=== PATIENT | female | born 1945 | race Caucasian/White ===

== ENCOUNTER 2017-02-14 14:19 | Inpatient (IN) | payer OTHER ==
--- NOTE | ~2017-02-14 | DS ---
Discharge Summary [facility] [address] [place]. [address] NAME: ОЛЬГА CAMPOS : 47 STATUS : DIS IN PAT#: [id number] AGE: 71 ADM/REG DATE : 02/14/17 MR#: [id number] REPORT SERV DATE: 02/16/17 DICTATED BY: LUCY CULP DATE: 02/15/17 REPORT STATUS : Draft TRANSCRIBED BY: MODL DATE: 02/15/17 ADMISSION DATE: 02/14/2017 DISCHARGE DATE: 02/15/2017 DISCHARGE DIAGNOSES: 1. Tachycardia, resolved. 2. Dehydration. 3. Acute kidney injury on chronic kidney disease. 4. Dysphagia, a modified barium swallow test showed no overt aspiration, but they recommended changing the diet to mechanical soft diet and explained to the patient. 5. Moderate protein-calorie malnutrition, proalbumin level of 10.6. HISTORY OF PRESENT ILLNESS: This is a 71-year-old female patient, who was directly admitted to hospital with sinus tachycardia, was noted by home health nurse. Please see dictated H and P. HOSPITAL COURSE: She was admitted to the hospital with sinus tachycardia. She was put on Coreg initially on admission and had a workup for the venous thrombosis. Her V/Q scan was low probability and also the ultrasounds of both legs were negative for DVT. The patient's sinus tachycardia subsided very quickly after the gentle hydration. Due to the ongoing dysphagia, the patient had tested for modified barium swallow test which showed no overt aspiration in that she has dysphagia and recommended modifying the diet to a mechanical soft diet. Because of her recent illness and hospitalization the last time, her nutrition status has been notified to be low with pre-albumin level of 12.6. I explained to the patient to take extra nutrition supplement with Ensure or Boost protein shake and modifying her diet to a mechanical soft diet. She voiced understanding, and after venous thrombosis was ruled, the patient remained in sinus rhythm. With Coreg given one dose, her heart rate went down to 50s. Therefore, we are not recommending continuing the Coreg, especially in light of history of orthostatic hypotension. I put her on the very low dose of metoprolol of 12.5 mg twice a day and needs close monitoring with the primary care physician. DISCHARGE MEDICATIONS: Same as home medication. One prescription of the metoprolol 12.5 mg twice a day is given on discharge. EKL/MODL Lucy Culp M.D. / [id number] CC: Discharge Summary [address] [address] NAME: ОЛЬГА CAMPOS : 47 STATUS : DIS IN PAT#: [id number] AGE: 71 ADM/REG DATE : 02/14/17 MR#: [id number] REPORT SERV DATE: 02/16/17 DICTATED BY: LUCY CULP DATE: 02/15/17 REPORT STATUS : Draft TRANSCRIBED BY: YUSUF DATE: 02/15/17 Elsa Roque M.D.
--- NOTE | ~2017-02-14 | HP ---
History And Physical [id number] [place]. [address] NAME: ОЛЬГА CAMPOS : 47 STATUS : ADM IN PAT#: [id number] AGE: 71 ADM/REG DATE : 02/14/17 MR#: [id number] REPORT SERV DATE: 02/14/17 DICTATED BY: MARSHAL LOPEZ DATE: 02/14/17 REPORT STATUS : Draft TRANSCRIBED BY: YUSUF DATE: 02/14/17 DATE OF ADMISSION: 02/14/2017 CHIEF COMPLAINT: Tachycardia with positive D-dimer. HISTORY OF PRESENT ILLNESS: This is a 71 years old female with an extensive past medical history for which the patient was recently discharged from the hospital in 11/[address] Michael Jackson, for which during that particular hospital course, the patient presented with acute on chronic abdominal pain with a diagnosis of mesenteric ischemia, for which the patient underwent an abdominal aortogram with stent placement in the proximal inferior mesenteric artery and percutaneous angioplasty of the secondary branch of the inferior mesenteric artery on 11/25/[address] Krueger. Postop, the patient experienced a code blue for which was stated to be possibly secondary to vasovagal episode, and the patient was transferred to ICU, also seen by Cardiology with Dr. Morrison and Dr. Caballero with an echocardiogram with ejection fraction of 55% with some mild ventricular diastolic dysfunction and no significant valvular disease. The patient's ARB was discontinued during that time due to orthostasis and CKD, and per Cardiology, the patient was not an FARIDA or ARB candidate due to her findings. The patient was discharged to [facility] and according to the patient's , the patient did reasonably well at [facility]; however, since discharge, the patient has not been eating or drinking well. The patient occasionally has choking episodes. The patient states that she feels like food or liquid occasionally gets stuck in her throat and she is afraid to eat. She denies any abdominal pain. The patient was discharged from [facility] and being seen by Outpatient Physical Therapy and approximately five days ago, the patient was found to have tachycardia with a heart rate in the 120s and has maintained in the 120s. She was seen by her primary care physician, Dr. Georgina Lance, who reportedly found the patient to be in sinus tachycardia and had a positive D-dimer greater than 5, and the patient was referred for direct admission into the hospital. The direct admission was accepted by Dr. Elmira Rao. The patient denies any chest pain, denies any shortness of breath. According to her , the patient is not very active at home, occasionally uses a walker, but he has not witnessed any shortness of breath or dyspnea on exertion. The patient is a poor history center lead consultant since her code blue according to her . The patient has not had any subjective fever or chills per the patient or . No abdominal pain. No nausea or vomiting. Does have intermittent constipation and requires laxatives intermittently. No medical records from primary care office sent to hospital. REVIEW OF SYSTEMS: Please refer to HPI. PAST MEDICAL HISTORY: Mesenteric ischemia, hypertension, orthostasis, thoracic aortic aneurysm status post endovascular repair, hyperlipidemia, COPD, anemia, monoclonal gammopathy, obstructive sleep apnea, peripheral vascular disease, CKD with atrophic right kidney. PAST SURGICAL HISTORY: Mesenteric aortogram with stent placement in the proximal inferior mesenteric artery and angioplasty of inferior mesenteric artery branch, lap cholecystectomy, History And Physical [address] [address] NAME: ОЛЬГА CAMPOS : 47 STATUS : ADM IN [facility]#: [id number] AGE: 71 ADM/REG DATE : 02/14/17 MR#: [id number] REPORT SERV DATE: 02/14/17 DICTATED BY: MARSHAL LOPEZ DATE: 02/14/17 REPORT STATUS : Draft TRANSCRIBED BY: YUSUF DATE: 02/14/17 hysterectomy, tonsillectomy, thoracic aortic stent graft repair, femoral stents. FAMILY HISTORY: Coronary artery disease/AL. SOCIAL HISTORY: The patient quit tobacco abuse in 2011. No alcohol or illicit drugs. She uses an occasional walker. Lives at home with her spouse. ALLERGIES: FAMILY DENIES ANY KNOWN ALLERGIES; HOWEVER, ACCORDING TO CHART, THERE IS A POSSIBLE ALLERGY WITH THE HYDROCODONE CAUSING HIVES. HOME MEDICATIONS: Please refer to pharmacy MAR. PHYSICAL EXAMINATION: VITAL SIGNS: Temp of 97.9, blood pressure 187/93 with a pulse of 104, respiration of 16, saturating 99% on room air. GENERAL: The patient is alert and oriented. No distress. States she feels fine. HEENT: Pupils equal, round, and reactive to light. Extraocular muscles are intact. Anicteric sclerae. CARDIOVASCULAR: S1, S2. Tachycardic. Possible 1/6 systolic murmur. No appreciated JVD. RESPIRATORY: Clear to auscultation bilaterally. No wheezes or crackles. No signs of tachypnea. ABDOMEN: Positive bowel sounds. Soft, nontender. No rebound. No fluid wave. No distention. EXTREMITIES: Bilateral dorsalis pedis pulses with bilateral trace of edema, the left lower extremity greater than the right. NEURO: Cranial nerves 2 through 12 grossly intact. Moves all four extremities. No neuro focal deficits. SKIN: No appreciated new skin rashes. LABORATORY DATA: Labs currently pending. ASSESSMENT AND PLAN: 1. Tachycardia/arrhythmia. 2. Positive D-dimer. 3. Failure to thrive with poor oral intake. 4. Dysphagia. 5. History of chronic kidney disease. 6. Chronic obstructive pulmonary disease. The patient will be admitted to cardiac telemetry. We will order a stat EKG. Also, we will order a V/Q scan considering the patient's CKD with an atrophic kidney. I want to protect kidneys as much as possible. Also, we will order bilateral lower extremity venous Doppler to rule out DVT and empirically start on heparin drip until PE or DVTs are ruled out. Also, we will provide low dose of IV hydration and also we will consult Speech Path for modified barium swallow for the patient's dysphagia. Also, we will follow up with pending labs and order a TSH and chest x-ray. The patient to be closely monitored. The patient will be admitted to Dr. Horacio Figueroa. History And Physical [address] [address] NAME: ОЛЬГА CAMPOS : 47 STATUS : ADM IN [facility]#: [id number] AGE: 71 ADM/REG DATE : 02/14/17 MR#: [id number] REPORT SERV DATE: 02/14/17 DICTATED BY: MARSHAL LOPEZ DATE: 02/14/17 REPORT STATUS : Draft TRANSCRIBED BY: YUSUF DATE: 02/14/17 [facility]/YUSUF Marshal Lopez M.D. / [id number] CC: Horacio Figueroa Jr, MD Christine Parker, M.D.
[~2017-02-14 14:19] MED LIST: 8 HOUR650 MG PO; ADVAIR250 INH; AMB5 PO; ASAB PO; BLOOD PRESSURE MED; CELEXA10 PO; COMP10B PO; COREG12 PO; COREG25 PO; COREG6 PO; COZ50 PO; DIL2TAB PO; HCTZ25B PO; KLONO5 PO; LEVSINTAB PO; LIPITOR40 PO; LIPITOR80 MG PO; LOSARTAN; MENEST0.625 MG PO; NEUR300 PO; PCET PO; PLAVIX PO; PRAVACHOL40 MG PO; PREM625 PO; PRILO PO; PRILOSEC OTC20 MG PO; PRIN20 PO; PROAIR HFA INH; REG PO; SPIRIVA INH; T PO; TYLENOL 8 HR650 MG PO
[2017-02-14] MEDS ORDERED: DULERA 200 MCG/13 GM INH (16:30)
[2017-02-14] MEDS ORDERED: SENTAB PO (16:30)
[2017-02-14] MEDS ORDERED: ASAB PO (16:30)
[2017-02-14] MEDS ORDERED: NORV25 PO (16:31)
[2017-02-14 17:14] LABS: BASOPHILS 0.2 %; BASOPHILS ABSOLUTE 0.02 10/3/uL (0.0-0.16); EOSINOPHILS 0.7 %; EOSINOPHILS ABSOLUTE 0.08 10/3/uL (0.0-0.53); IMMATURE GRANULOCYTES 0.4 %; IMMATURE GRANULOCYTES ABSOLUTE 0.05 10/3/uL (0.0-0.11); LYMPHOCYTES 21.2 %; LYMPHOCYTES ABSOLUTE 2.56 10/3/uL (0.67-4.30); MEAN CORPUS HGB CONC 31.1 g/dL (32.0-36.0); MEAN CORPUSCULAR HEMOGLOB 23.4 pg (26.0-34.0); MEAN PLATELET VOLUME 8.5 fL (9.2-13.0); MONOCYTES 9.2 %; MONOCYTES ABSOLUTE 1.11 10/3/uL (0.21-1.20); NEUTROPHILS 68.3 %; NEUTROPHILS ABSOLUTE 8.24 10/3/uL (2.02-8.40); PLATELET COUNT 363 10/3/uL (150-400); RBC DISTRIBUTION WIDTH 17.7 % (12.0-16.0); RED CELL COUNT 4.66 10/6/uL (4.0-5.6); WHITE BLOOD CELLS 12.1 10/3/uL (4.5-10.5)
[2017-02-14 17:15] LABS: HEMATOCRIT 35.1 % (36.0-48.0); HEMOGLOBIN 10.9 g/dL (12.0-16.0); MANUAL DIFF NO %; MEAN CORPUSCULAR VOLUME 75.3 fL (80-100)
[2017-02-14 17:18] LABS: PARTIAL THROMBO TIME 26.9 SEC (22.5-37.2)
[2017-02-14 17:19] LABS: INTERNATIONAL NORMAL RATI 1.2 UNITS (-)
[2017-02-14 17:28] LABS: CPK 21 U/L (0-200); TROPONIN I <0.02 NG/ML (<0.05)
[2017-02-14 17:29] LABS: CK-MB < 0.5 NG/ML
[2017-02-15 06:09] LABS: BASOPHILS 0.5 %; BASOPHILS ABSOLUTE 0.05 10/3/uL (0.0-0.16); EOSINOPHILS 2.1 %; EOSINOPHILS ABSOLUTE 0.21 10/3/uL (0.0-0.53); HEMOGLOBIN 9.8 g/dL (12.0-16.0); IMMATURE GRANULOCYTES 0.3 %; IMMATURE GRANULOCYTES ABSOLUTE 0.03 10/3/uL (0.0-0.11); LYMPHOCYTES 28.1 %; LYMPHOCYTES ABSOLUTE 2.75 10/3/uL (0.67-4.30); MEAN CORPUS HGB CONC 31.3 g/dL (32.0-36.0); MEAN CORPUSCULAR HEMOGLOB 23.6 pg (26.0-34.0); MEAN CORPUSCULAR VOLUME 75.2 fL (80-100); MEAN PLATELET VOLUME 8.7 fL (9.2-13.0); MONOCYTES 8.9 %; MONOCYTES ABSOLUTE 0.87 10/3/uL (0.21-1.20); NEUTROPHILS 60.1 %; NEUTROPHILS ABSOLUTE 5.86 10/3/uL (2.02-8.40); PLATELET COUNT 350 10/3/uL (150-400); RBC DISTRIBUTION WIDTH 17.8 % (12.0-16.0); RED CELL COUNT 4.16 10/6/uL (4.0-5.6); WHITE BLOOD CELLS 9.8 10/3/uL (4.5-10.5)
[2017-02-15 06:14] LABS: INTERNATIONAL NORMAL RATI 1.3 UNITS (-); PROTIME (NOT ORD) 16.3 SEC (12.0-14.5)
[2017-02-15 06:15] LABS: HEMATOCRIT 31.3 % (36.0-48.0); MANUAL DIFF NO %
[2017-02-15 06:31] LABS: BUN (BLOOD UREA NITROGEN) 21 MG/DL (6-23); CALCIUM, SERUM 9.1 MG/DL (8.5-10.4); CHLORIDE, SERUM 91 MMOL/L (96-112); CO2 (CARBON DIOXIDE) 30 MMOL/L (24-34); CREATININE 1.18 MG/DL (0.55-1.02); GFR AFRICAN AMERICAN 54 ML/MIN (>=60); GFR NON AFRICAN AMERICAN 47 ML/MIN (>=60); GLUCOSE, SERUM 110 MG/DL (60-99); PHOSPHORUS, SERUM 2.8 MG/DL (2.5-4.5); POTASSIUM, SERUM 3.1 MMOL/L (3.5-5.3); PREALBUMIN 10.6 MG/DL (17.0-43.0); SGOT(AST) 9 U/L (5-40); SGPT(ALT) 9 U/L (5-65); SODIUM, SERUM 130 MMOL/L (135-148); TOTAL BILIRUBIN 0.4 MG/DL (0-1.2); TOTAL PROTEIN 7.7 G/DL (6.0-8.5)
[2017-02-15 06:33] LABS: A/G RATIO 0.5 (0.7-1.9); ALBUMIN 2.5 G/DL (3.5-5.0); ALKALINE PHOSPHATASE 90 U/L (45-117); GLOBULIN 5.2 G/DL (2.5-4.1)
[2017-02-15] MEDS ORDERED: LOP25 PO (15:26)
[2017-05-08] MEDS ORDERED: CELEXA20 PO (18:49)
[2017-05-08] MEDS ORDERED: HALF81 PO (18:49)
[2017-05-08] MEDS ORDERED: ADVAIR INH (18:49)
[2017-05-08] MEDS ORDERED: SPIRIVA INH (18:49)
[2017-05-08] MEDS ORDERED: SENTAB PO (18:50)
[2017-05-08] MEDS ORDERED: NORV25 PO (18:50)
[2017-05-08] MEDS ORDERED: CELEXA40 MG PO (18:50)
[2017-05-08] MEDS ORDERED: PLAVIX PO (18:50)
[2017-05-08] MEDS ORDERED: AMB5 PO (18:51)
[2017-05-08] MEDS ORDERED: PROTONIX PO (18:51)
[2017-05-27] MEDS ORDERED: CELEXA40 MG PO (09:54)
== END 2017-02-15 17:49 | disposition home or self-care (01) | DRG 641 ==
LOC: CDU2 14:19
PROVIDERS: Internal Medicine
DX: E86.0 Dehydration (principal); N17.9 Acute kidney failure, unspecified; E44.0 Moderate protein-calorie malnutrition; J44.9 Chronic obstructive pulmonary disease, unspecified; N18.9 Chronic kidney disease, unspecified; I12.9 Hypertensive chronic kidney disease with stage 1 through stage 4 chronic kidney disease, or unspecified chronic kidney disease; I95.1 Orthostatic hypotension; R13.10 Dysphagia, unspecified; G47.33 Obstructive sleep apnea (adult) (pediatric); Z82.49 Family history of ischemic heart disease and other diseases of the circulatory system; Z95.828 Presence of other vascular implants and grafts
CPT/HCPCS: 36415; 71010; 74230; 78582; 80053; 82550; 82553; 83735; 84100; 84134; 84443; 84484; 85025; 85027; 85610; 85730; 86850; 86900; 86901; 92611-GN; 93005; 93970; 94640; A9270-GY; A9540; A9567; G8996-CJ-GN; G8997-CJ-GN; G8998-CJ-GN; J0360

== ENCOUNTER 2017-05-08 20:04 | Inpatient (IN) | payer MEDICARE, OTHER ==
--- NOTE | ~2017-05-08 | OP ---
Record Of Operation [facility] [address] [place]. 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 PROCEDURE: 1. Endovascular repair of type 1 endoleak with placement of distal aortic extension cuff for treatment of expanding thoracoabdominal aneurysm. 2. Placement of the left renal stent (snorkel technique for preservation of flow to the left renal artery). 3. Abdominal aortogram. 4. Bilateral femoral sheath. ANESTHESIA: Local with MAC. IV FLUIDS: 100 mL. ESTIMATED BLOOD LOSS: 25 mL. CONTRAST: 110 mL. BRIEF HISTORY: Ms. Adri Campos is a pleasant 72-year-old female who is a well-known to my service. She has had multiple interventions for treatment of mesenteric occlusive disease as well as endovascular repair of the distal thoracic aneurysm extending down to the abdominal aorta. She has now developed an expanding thoracoabdominal aneurysm with a type 1 endoleak below in existing graft. 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 The aneurysm extends down to near the base of the left renal artery. Based on her overall poor medical risk factors, she was felt not to be a good candidate for open thoracoabdominal reconstruction. She was recommended to undergo an attempt at endovascular repair with possible stenting of the left renal artery in order to maintain flow and avoid left renal artery bypass. This was all discussed with the patient well as well as with her at length on multiple occasions. The risks including bleeding, infection, renal failure, heart attack, pneumonia, limb loss, mesenteric ischemia among others were all discussed. They had no unanswered questions and wished to proceed. DESCRIPTION OF PROCEDURE: She was taken to the operating room and placed in supine on table. Sedation was achieved. Both groins and the abdomen were prepped and draped in the sterile fashion. I performed a puncture of the right common femoral artery, placed a 6-Rwandan sheath, and advanced a catheter into the thoracic aorta. We then performed a puncture on the left side, we placed a ProGlide device x2, and then placed an 11-Rwandan sheath. Record Of Operation [facility] [address] [facility] [place]. [address] NAME: ADRI CAMPOS : 47 STATUS : DIS IN PAT#: [id number] AGE: 72 ADM/REG DATE : 05/08/17 MR#: [id number] REPORT SERV DATE: 05/16/17 DICTATED BY: CASEY FRANCISCO II DATE: 05/15/17 REPORT STATUS : Draft TRANSCRIBED BY: YUSUF DATE: 05/15/17 Aortogram was performed that demonstrating a previously placed aortic stent graft that extended down from the thoracic aorta down into the abdominal aorta. There was absence of fixation to the aortic wall and the abdominal aorta and above the renal arteries with the aneurysm extends down to the left renal. Below the left renal, the aorta appears to be of normal caliber consistent with the CT scan. The SMA reimplantation was widely patent. The right renal artery was functionally occluded. At this point, we heparinized the patient, we came from the right side, and we passed a wire into the left renal artery. We then passed a sheath in the left renal artery when preparation to bring the stent down below the renal arteries and placing a stent to preserve flow within the left renal. We then elected to proceed with endovascular repair of the type 1 endoleak and to exclude the aneurysm. We advanced the main body of the device which was a 38 x 32 device into the existing graft and we deployed this down near the origin of the SMA reimplantation below the left renal artery. We then deployed 7 mm x 5 cm stent into the left renal artery. This was a covered stent that was deployed in a snorkel technique with the origin of the stent exiting below the distal attachment of the thoracic stent graft. We then ballooned the left renal stent as well as the aortic stent graft. Completion of aortogram demonstrates excellent placement of the stent. There was good flow through the thoracic stent. There was no further type 1 endoleak seen. Good fixation was seen distally. The left renal stent was widely patent with excellent flow noted to the left renal artery. The superior mesenteric artery remained widely patent. We then removed all the wires and catheters, and we closed percutaneously. At the end of procedure, Ms. Campos was stable. She tolerated it well. She was transported to the recovery room in good condition. BLAYNE/YUSUF Casey Francisco II, M.D. / [id number] CC: Elsa Adorno M.D.
--- NOTE | ~2017-05-08 | DS ---
Discharge Summary [facility] [address] [place]. [address] NAME: ОЛЬГА CAMPOS : 47 STATUS : DIS IN PAT#: [id number] AGE: 72 ADM/REG DATE : 05/08/17 MR#: [id number] REPORT SERV DATE: 05/30/17 DICTATED BY: BEATRIZ RAO DATE: 05/29/17 REPORT STATUS : Draft TRANSCRIBED BY: YUSUF DATE: 05/29/17 Data Collection from hospitalization DISCHARGE DIAGNOSES: 1. 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 2. Hypertension. 3. CML. 4. Hyperlipidemia. 5. Chronic obstructive pulmonary disease. 6. Monoclonal gammopathy. 7. Peripheral vascular disease. 8. Obstructive sleep apnea. 9. Chronic kidney disease with atrophic right kidney. 10.Former smoker. CONSULTATIONS: None. PROCEDURES: Endovascular repair of type 1 endoleak with placement of distal aortic extension cuff for treatment of expanding thoracoabdominal aneurysm, placement of left renal stent (snorkel technique for preservation of flow to the left renal artery), abdominal aortogram and bilateral femoral sheath, 05/11/2017. DISCHARGE MEDICATIONS: Norvasc 2.5 mg daily, aspirin 81 mg daily, Celexa 20 mg every 48 hours, Plavix 75 mg daily, Advair Diskus one puff via inhaler daily, Protonix 40 mg daily as needed, Senokot one tablet daily as needed, Spiriva one capsule via inhaler daily, and Ambien 5 mg at bedtime as needed. She was instructed not to continue Celexa 40 mg. CONDITION ON DISCHARGE: Stable. DISPOSITION: The patient was discharged home on a low-sodium, low-cholesterol cardiac step 1 and 2 diet with activities as instructed. She will follow up with me, 05/30/2017. HOSPITAL COURSE: This is a 72-year-old female who presented to the hospital with abdominal pain of four days' duration. It was located in the epigastric area. She also had lower back pain, nausea, and vomiting. She described the pain as soreness after receiving a pain shot. The pain had been worsening until now and was described as being 8 out of 10. There was a concern about possible endoleak. There was a concern about possible thoracoabdominal aortic aneurysm. Stent graft imaging was going to be reviewed. The patient was admitted to the hospital at this time for further evaluation and treatment. Upon admission, the patient was stable currently, blood pressure control was begun, she was being held n.p.o. pending imaging. She is going to be monitored in the ICU. The following day, her pain had resolved. Her systolic blood pressure was 150 on Cardene. No leak had been seen on CTA. Her pain symptoms had resolved. On 05/10/2017, her pain continued to decrease. She still had some tenderness in the epigastric area. Her CT scan had shown some increase in the TAA. There was no definite endoleak. The patient has an 8-cm aneurysm of the descending aorta. There was no evidence of fracture or signs of endoleak but comparison Discharge Summary [address] [place]. [address] NAME: ОЛЬГА CAMPOS : 47 STATUS : DIS IN PAT#: [id number] AGE: 72 ADM/REG DATE : 05/08/17 MR#: [id number] REPORT SERV DATE: 05/30/17 DICTATED BY: BEATRIZ RAO DATE: 05/29/17 REPORT STATUS : Draft TRANSCRIBED BY: MODGreg DATE: 05/29/17 studies would be most helpful in ensuring that there was no significant enlargement. The patient has chronic hypoperfusion of the right kidney due to mostly an occluded right renal artery. There is stenosis of the distal aortic artery branch just superior to the level of the aortic bifurcation. The stenosis was seen just beyond the stent graft, and there appeared to be [id number] stenosis. No obvious complications related to this artery were seen but comparison studies would be most helpful in assessing the clinical significance of this stenosis. The patient had undergone multiple interventions for treatment of mesenteric occlusive disease as well as endovascular repair of the distal thoracic aneurysm extending down to the abdominal aorta. It was felt that she had now developed an expanding thoracoabdominal aneurysm with type 1 endoleak below an existing graft. 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 The aneurysm extends down to near the base of the left renal artery. Based on her overall poor medical risk factors, she was not felt to be a good candidate for open thoracoabdominal reconstruction. It was recommended that she undergo an attempt at endovascular repair with possible stenting of the left renal artery in order to maintain flow and avoid left renal artery bypass. This was discussed with the patient and her at length on multiple occasions, they agreed to proceed. She was taken to the operating room where she underwent the above-mentioned procedure. She tolerated this well, and there were no complications. On postop day #1, the patient was doing well. She had no new complaints. She denied chest pain, shortness of breath, or abdominal pain. She was afebrile. She was going to be transferred to the floor. On the 05/13/2017, she felt well, her abdomen was soft and nontender, her groin site was clean, dry, and intact. She continued to slowly improve. Blood pressure was under better control. She was evaluated by Physical Therapy. Her pain continued to decrease. She was tolerating her diet. Discharge planning was performed on 05/15/2017. She remained afebrile. Discharge instructions were given. Due to her improved and stable condition, she was discharged home with the above- stated instructions. Information collected by: Maria Ines Berry I submit the above information as my discharge summary. TG/MODL Beatriz Rao M.D. / [id number] CC: Elsa Adorno M.D.
[2017-05-08 15:45] LABS: A/G RATIO 0.5 (0.7-1.9); ALBUMIN 3.1 G/DL (3.5-5.0); CALCIUM, SERUM 9.8 MG/DL (8.5-10.4); CHLORIDE, SERUM 93 MMOL/L (96-112); CO2 (CARBON DIOXIDE) 29 MMOL/L (24-34); CREATININE 1.39 MG/DL (0.55-1.02); GFR AFRICAN AMERICAN 44 ML/MIN (>=60); GFR NON AFRICAN AMERICAN 38 ML/MIN (>=60); GLOBULIN 5.7 G/DL (2.5-4.1); SGOT(AST) 13 U/L (5-40); SGPT(ALT) 13 U/L (5-65); SODIUM, SERUM 134 MMOL/L (135-148); TOTAL BILIRUBIN 0.4 MG/DL (0-1.2); TOTAL PROTEIN 8.8 G/DL (6.0-8.5)
[2017-05-08 15:52] LABS: ALKALINE PHOSPHATASE 116 U/L (45-117); BUN (BLOOD UREA NITROGEN) 29 MG/DL (6-23); GLUCOSE, SERUM 143 MG/DL (60-99); POTASSIUM, SERUM 3.1 MMOL/L (3.5-5.3)
[2017-05-08 19:47] LABS: BASOPHILS 0.2 %; BASOPHILS ABSOLUTE 0.02 10/3/uL (0.0-0.16); EOSINOPHILS 0.3 %; EOSINOPHILS ABSOLUTE 0.03 10/3/uL (0.0-0.53); ER CBC TAT 0 Hrs 07 Mins; HEMATOCRIT 32.8 % (36.0-48.0); HEMOGLOBIN 10.2 g/dL (12.0-16.0); IMMATURE GRANULOCYTES 0.3 %; IMMATURE GRANULOCYTES ABSOLUTE 0.04 10/3/uL (0.0-0.11); LYMPHOCYTES 22.8 %; LYMPHOCYTES ABSOLUTE 2.65 10/3/uL (0.67-4.30); MANUAL DIFF NO %; MEAN CORPUS HGB CONC 31.1 g/dL (32.0-36.0); MEAN CORPUSCULAR HEMOGLOB 23.7 pg (26.0-34.0); MEAN CORPUSCULAR VOLUME 76.1 fL (80-100); MONOCYTES 8.8 %; MONOCYTES ABSOLUTE 1.02 10/3/uL (0.21-1.20); NEUTROPHILS 67.6 %; NEUTROPHILS ABSOLUTE 7.88 10/3/uL (2.02-8.40); PLATELET COUNT 334 10/3/uL (150-400); RBC DISTRIBUTION WIDTH 17.2 % (12.0-16.0); RED CELL COUNT 4.31 10/6/uL (4.0-5.6); WHITE BLOOD CELLS 11.6 10/3/uL (4.5-10.5)
[2017-05-08 19:55] LABS: INTERNATIONAL NORMAL RATI 1.3 UNITS (-); PROTIME (NOT ORD) 15.8 SEC (12.0-14.5)
[2017-05-08 20:03] LABS: A/G RATIO 0.5 (0.7-1.9); ALBUMIN 2.8 G/DL (3.5-5.0); BUN (BLOOD UREA NITROGEN) 28 MG/DL (6-23); CALCIUM, SERUM 9.5 MG/DL (8.5-10.4); CHLORIDE, SERUM 94 MMOL/L (96-112); CO2 (CARBON DIOXIDE) 32 MMOL/L (24-34); CREATININE 1.26 MG/DL (0.55-1.02); GFR AFRICAN AMERICAN 50 ML/MIN (>=60); GFR NON AFRICAN AMERICAN 43 ML/MIN (>=60); GLOBULIN 5.8 G/DL (2.5-4.1); GLUCOSE, SERUM 119 MG/DL (60-99); POTASSIUM, SERUM 3.3 MMOL/L (3.5-5.3); SGPT(ALT) 12 U/L (5-65); SODIUM, SERUM 133 MMOL/L (135-148); TOTAL BILIRUBIN 0.4 MG/DL (0-1.2); TOTAL PROTEIN 8.6 G/DL (6.0-8.5)
[2017-05-08 20:04] LABS: ALKALINE PHOSPHATASE 102 U/L (45-117); SGOT(AST) 15 U/L (5-40)
[~2017-05-08 20:04] MED LIST changes: +ADVAIR INH; +CELEXA20 PO; +CELEXA40 MG PO; +DULERA 200 MCG/13 GM INH; +HALF81 PO; +LOP25 PO; +NORV25 PO; +PROTONIX PO; +SENTAB PO
[2017-05-09 04:08] LABS: BASOPHILS 0.3 %; BASOPHILS ABSOLUTE 0.03 10/3/uL (0.0-0.16); EOSINOPHILS 0.6 %; EOSINOPHILS ABSOLUTE 0.06 10/3/uL (0.0-0.53); HEMATOCRIT 33.4 % (36.0-48.0); HEMOGLOBIN 10.2 g/dL (12.0-16.0); IMMATURE GRANULOCYTES 0.3 %; IMMATURE GRANULOCYTES ABSOLUTE 0.03 10/3/uL (0.0-0.11); LYMPHOCYTES 18.5 %; LYMPHOCYTES ABSOLUTE 1.95 10/3/uL (0.67-4.30); MEAN CORPUS HGB CONC 30.5 g/dL (32.0-36.0); MEAN CORPUSCULAR HEMOGLOB 23.5 pg (26.0-34.0); MONOCYTES 8.8 %; MONOCYTES ABSOLUTE 0.93 10/3/uL (0.21-1.20); NEUTROPHILS 71.5 %; NEUTROPHILS ABSOLUTE 7.54 10/3/uL (2.02-8.40); PLATELET COUNT 304 10/3/uL (150-400); RBC DISTRIBUTION WIDTH 17.1 % (12.0-16.0); RED CELL COUNT 4.34 10/6/uL (4.0-5.6); WHITE BLOOD CELLS 10.5 10/3/uL (4.5-10.5)
[2017-05-09 04:09] LABS: MANUAL DIFF NO %
[2017-05-09 04:21] LABS: BUN (BLOOD UREA NITROGEN) 28 MG/DL (6-23); CALCIUM, SERUM 9.9 MG/DL (8.5-10.4); CHLORIDE, SERUM 97 MMOL/L (96-112); CO2 (CARBON DIOXIDE) 32 MMOL/L (24-34); CREATININE 1.24 MG/DL (0.55-1.02); GFR AFRICAN AMERICAN 51 ML/MIN (>=60); GFR NON AFRICAN AMERICAN 44 ML/MIN (>=60); GLUCOSE, SERUM 131 MG/DL (60-99); SODIUM, SERUM 136 MMOL/L (135-148)
[2017-05-10 04:48] LABS: BASOPHILS 0.3 %; BASOPHILS ABSOLUTE 0.03 10/3/uL (0.0-0.16); EOSINOPHILS 1.6 %; EOSINOPHILS ABSOLUTE 0.15 10/3/uL (0.0-0.53); HEMOGLOBIN 8.9 g/dL (12.0-16.0); IMMATURE GRANULOCYTES 0.4 %; IMMATURE GRANULOCYTES ABSOLUTE 0.04 10/3/uL (0.0-0.11); LYMPHOCYTES 23.5 %; MEAN CORPUS HGB CONC 30.4 g/dL (32.0-36.0); MEAN CORPUSCULAR HEMOGLOB 23.6 pg (26.0-34.0); MEAN CORPUSCULAR VOLUME 77.7 fL (80-100); MEAN PLATELET VOLUME 8.7 fL (9.2-13.0); MONOCYTES 8.5 %; NEUTROPHILS 65.7 %; NEUTROPHILS ABSOLUTE 6.15 10/3/uL (2.02-8.40); PLATELET COUNT 261 10/3/uL (150-400); RBC DISTRIBUTION WIDTH 17.1 % (12.0-16.0); RED CELL COUNT 3.77 10/6/uL (4.0-5.6); WHITE BLOOD CELLS 9.4 10/3/uL (4.5-10.5)
[2017-05-10 04:51] LABS: HEMATOCRIT 29.3 % (36.0-48.0); MANUAL DIFF NO %
[2017-05-10 04:54] LABS: CHLORIDE, SERUM 102 MMOL/L (96-112); CO2 (CARBON DIOXIDE) 32 MMOL/L (24-34); CREATININE 0.81 MG/DL (0.55-1.02); GFR AFRICAN AMERICAN 85 ML/MIN (>=60); GFR NON AFRICAN AMERICAN 74 ML/MIN (>=60); SODIUM, SERUM 141 MMOL/L (135-148)
[2017-05-10 05:01] LABS: BUN (BLOOD UREA NITROGEN) 14 MG/DL (6-23); CALCIUM, SERUM 8.9 MG/DL (8.5-10.4); GLUCOSE, SERUM 89 MG/DL (60-99)
[2017-05-10 05:02] LABS: POTASSIUM, SERUM 2.7 MMOL/L (3.5-5.3)
[2017-05-10 20:58] LABS: POTASSIUM, SERUM 3.3 MMOL/L (3.5-5.3)
[2017-05-11 03:53] LABS: BASOPHILS 0.1 %; BASOPHILS ABSOLUTE 0.01 10/3/uL (0.0-0.16); EOSINOPHILS 1.8 %; EOSINOPHILS ABSOLUTE 0.16 10/3/uL (0.0-0.53); HEMATOCRIT 32.2 % (36.0-48.0); HEMOGLOBIN 9.7 g/dL (12.0-16.0); IMMATURE GRANULOCYTES 0.3 %; IMMATURE GRANULOCYTES ABSOLUTE 0.03 10/3/uL (0.0-0.11); LYMPHOCYTES 21.9 %; LYMPHOCYTES ABSOLUTE 1.98 10/3/uL (0.67-4.30); MEAN CORPUS HGB CONC 30.1 g/dL (32.0-36.0); MEAN CORPUSCULAR HEMOGLOB 23.2 pg (26.0-34.0); MEAN PLATELET VOLUME 8.5 fL (9.2-13.0); MONOCYTES 9.4 %; MONOCYTES ABSOLUTE 0.85 10/3/uL (0.21-1.20); NEUTROPHILS 66.5 %; NEUTROPHILS ABSOLUTE 6.02 10/3/uL (2.02-8.40); PLATELET COUNT 248 10/3/uL (150-400); RBC DISTRIBUTION WIDTH 17.2 % (12.0-16.0); RED CELL COUNT 4.18 10/6/uL (4.0-5.6); WHITE BLOOD CELLS 9.1 10/3/uL (4.5-10.5)
[2017-05-11 04:00] LABS: MANUAL DIFF NO %
[2017-05-11 04:05] LABS: BUN (BLOOD UREA NITROGEN) 11 MG/DL (6-23); CALCIUM, SERUM 8.7 MG/DL (8.5-10.4); CHLORIDE, SERUM 100 MMOL/L (96-112); CO2 (CARBON DIOXIDE) 30 MMOL/L (24-34); CREATININE 0.88 MG/DL (0.55-1.02); GFR AFRICAN AMERICAN 77 ML/MIN (>=60); GFR NON AFRICAN AMERICAN 67 ML/MIN (>=60); GLUCOSE, SERUM 109 MG/DL (60-99); POTASSIUM, SERUM 3.5 MMOL/L (3.5-5.3); SODIUM, SERUM 136 MMOL/L (135-148)
[2017-05-11 11:00] LABS: BASOPHILS 0.2 %; BASOPHILS ABSOLUTE 0.02 10/3/uL (0.0-0.16); EOSINOPHILS 1.2 %; EOSINOPHILS ABSOLUTE 0.12 10/3/uL (0.0-0.53); HEMATOCRIT 29.2 % (36.0-48.0); HEMOGLOBIN 8.8 g/dL (12.0-16.0); IMMATURE GRANULOCYTES 0.4 %; IMMATURE GRANULOCYTES ABSOLUTE 0.04 10/3/uL (0.0-0.11); LYMPHOCYTES 14.4 %; LYMPHOCYTES ABSOLUTE 1.45 10/3/uL (0.67-4.30); MANUAL DIFF NO %; MEAN CORPUS HGB CONC 30.1 g/dL (32.0-36.0); MEAN CORPUSCULAR HEMOGLOB 23.2 pg (26.0-34.0); MEAN PLATELET VOLUME 8.5 fL (9.2-13.0); MONOCYTES 7.6 %; MONOCYTES ABSOLUTE 0.77 10/3/uL (0.21-1.20); NEUTROPHILS 76.2 %; NEUTROPHILS ABSOLUTE 7.69 10/3/uL (2.02-8.40); PLATELET COUNT 205 10/3/uL (150-400); RBC DISTRIBUTION WIDTH 17.6 % (12.0-16.0); RED CELL COUNT 3.79 10/6/uL (4.0-5.6); WHITE BLOOD CELLS 10.1 10/3/uL (4.5-10.5)
[2017-05-11 12:29] LABS: POTASSIUM, SERUM 3.6 MMOL/L (3.5-5.3); SODIUM, SERUM 137 MMOL/L (135-148)
[2017-05-11 12:43] LABS: BUN (BLOOD UREA NITROGEN) 9 MG/DL (6-23); CALCIUM, SERUM 9.2 MG/DL (8.5-10.4); CHLORIDE, SERUM 101 MMOL/L (96-112); CO2 (CARBON DIOXIDE) 30 MMOL/L (24-34); CREATININE 0.89 MG/DL (0.55-1.02); GFR AFRICAN AMERICAN 76 ML/MIN (>=60); GFR NON AFRICAN AMERICAN 66 ML/MIN (>=60); GLUCOSE, SERUM 105 MG/DL (60-99)
[2017-05-12 03:44] LABS: BASOPHILS 0.2 %; BASOPHILS ABSOLUTE 0.02 10/3/uL (0.0-0.16); EOSINOPHILS 0.7 %; EOSINOPHILS ABSOLUTE 0.09 10/3/uL (0.0-0.53); HEMATOCRIT 28.5 % (36.0-48.0); HEMOGLOBIN 8.5 g/dL (12.0-16.0); IMMATURE GRANULOCYTES 0.3 %; IMMATURE GRANULOCYTES ABSOLUTE 0.04 10/3/uL (0.0-0.11); LYMPHOCYTES 12.2 %; LYMPHOCYTES ABSOLUTE 1.57 10/3/uL (0.67-4.30); MEAN CORPUS HGB CONC 29.8 g/dL (32.0-36.0); MEAN PLATELET VOLUME 8.8 fL (9.2-13.0); MONOCYTES 8.6 %; MONOCYTES ABSOLUTE 1.11 10/3/uL (0.21-1.20); NEUTROPHILS ABSOLUTE 10.08 10/3/uL (2.02-8.40); PLATELET COUNT 234 10/3/uL (150-400); RBC DISTRIBUTION WIDTH 17.3 % (12.0-16.0); WHITE BLOOD CELLS 12.9 10/3/uL (4.5-10.5)
[2017-05-12 03:46] LABS: MANUAL DIFF NO %
[2017-05-12 04:01] LABS: BUN (BLOOD UREA NITROGEN) 13 MG/DL (6-23); CALCIUM, SERUM 8.9 MG/DL (8.5-10.4); CHLORIDE, SERUM 103 MMOL/L (96-112); CO2 (CARBON DIOXIDE) 30 MMOL/L (24-34); CREATININE 1.08 MG/DL (0.55-1.02); GFR AFRICAN AMERICAN 60 ML/MIN (>=60); GFR NON AFRICAN AMERICAN 52 ML/MIN (>=60); GLUCOSE, SERUM 148 MG/DL (60-99); POTASSIUM, SERUM 3.5 MMOL/L (3.5-5.3); SODIUM, SERUM 139 MMOL/L (135-148)
[2017-05-12 11:00] LABS: BASOPHILS 0.1 %; BASOPHILS ABSOLUTE 0.02 10/3/uL (0.0-0.16); EOSINOPHILS 0.1 %; EOSINOPHILS ABSOLUTE 0.02 10/3/uL (0.0-0.53); HEMATOCRIT 28.9 % (36.0-48.0); HEMOGLOBIN 8.6 g/dL (12.0-16.0); IMMATURE GRANULOCYTES 0.3 %; IMMATURE GRANULOCYTES ABSOLUTE 0.05 10/3/uL (0.0-0.11); LYMPHOCYTES 11.8 %; LYMPHOCYTES ABSOLUTE 1.79 10/3/uL (0.67-4.30); MEAN CORPUS HGB CONC 29.8 g/dL (32.0-36.0); MEAN CORPUSCULAR HEMOGLOB 23.1 pg (26.0-34.0); MEAN CORPUSCULAR VOLUME 77.5 fL (80-100); MEAN PLATELET VOLUME 8.9 fL (9.2-13.0); MONOCYTES 8.3 %; MONOCYTES ABSOLUTE 1.25 10/3/uL (0.21-1.20); NEUTROPHILS 79.4 %; NEUTROPHILS ABSOLUTE 12.02 10/3/uL (2.02-8.40); PLATELET COUNT 263 10/3/uL (150-400); RBC DISTRIBUTION WIDTH 17.6 % (12.0-16.0); RED CELL COUNT 3.73 10/6/uL (4.0-5.6); WHITE BLOOD CELLS 15.2 10/3/uL (4.5-10.5)
[2017-05-12 11:01] LABS: MANUAL DIFF NO %
[2017-05-12 11:10] LABS: BUN (BLOOD UREA NITROGEN) 14 MG/DL (6-23); CALCIUM, SERUM 9.2 MG/DL (8.5-10.4); CHLORIDE, SERUM 103 MMOL/L (96-112); CO2 (CARBON DIOXIDE) 29 MMOL/L (24-34); CREATININE 1.07 MG/DL (0.55-1.02); GFR AFRICAN AMERICAN 61 ML/MIN (>=60); GFR NON AFRICAN AMERICAN 53 ML/MIN (>=60); GLUCOSE, SERUM 166 MG/DL (60-99); POTASSIUM, SERUM 3.7 MMOL/L (3.5-5.3); SODIUM, SERUM 139 MMOL/L (135-148)
[2017-05-13 03:51] LABS: BASOPHILS 0.2 %; BASOPHILS ABSOLUTE 0.02 10/3/uL (0.0-0.16); EOSINOPHILS 1.8 %; EOSINOPHILS ABSOLUTE 0.17 10/3/uL (0.0-0.53); HEMOGLOBIN 7.4 g/dL (12.0-16.0); IMMATURE GRANULOCYTES 0.3 %; IMMATURE GRANULOCYTES ABSOLUTE 0.03 10/3/uL (0.0-0.11); LYMPHOCYTES 20.4 %; LYMPHOCYTES ABSOLUTE 1.97 10/3/uL (0.67-4.30); MEAN CORPUSCULAR HEMOGLOB 23.2 pg (26.0-34.0); MEAN CORPUSCULAR VOLUME 77.4 fL (80-100); MEAN PLATELET VOLUME 9.3 fL (9.2-13.0); MONOCYTES 9.1 %; MONOCYTES ABSOLUTE 0.88 10/3/uL (0.21-1.20); NEUTROPHILS 68.2 %; NEUTROPHILS ABSOLUTE 6.57 10/3/uL (2.02-8.40); PLATELET COUNT 208 10/3/uL (150-400); RBC DISTRIBUTION WIDTH 17.9 % (12.0-16.0); RED CELL COUNT 3.19 10/6/uL (4.0-5.6); WHITE BLOOD CELLS 9.6 10/3/uL (4.5-10.5)
[2017-05-13 03:52] LABS: HEMATOCRIT 24.7 % (36.0-48.0); MANUAL DIFF NO %
[2017-05-13 03:55] LABS: BUN (BLOOD UREA NITROGEN) 16 MG/DL (6-23); CALCIUM, SERUM 8.9 MG/DL (8.5-10.4); CHLORIDE, SERUM 104 MMOL/L (96-112); CO2 (CARBON DIOXIDE) 32 MMOL/L (24-34); CREATININE 0.98 MG/DL (0.55-1.02); GFR AFRICAN AMERICAN 68 ML/MIN (>=60); GFR NON AFRICAN AMERICAN 58 ML/MIN (>=60); GLUCOSE, SERUM 97 MG/DL (60-99); POTASSIUM, SERUM 3.9 MMOL/L (3.5-5.3); SODIUM, SERUM 142 MMOL/L (135-148)
[2017-05-14 06:15] LABS: HEMATOCRIT 25.1 % (36.0-48.0); HEMATOCRIT 25.7 % (36.0-48.0); HEMOGLOBIN 7.6 g/dL (12.0-16.0); HEMOGLOBIN 7.8 g/dL (12.0-16.0)
[2017-05-27] MEDS ORDERED: CELEXA40 MG PO (09:54)
== END 2017-05-15 16:29 | disposition home or self-care (01) | DRG 269 ==
LOC: ER 20:04 → CVICU 22:18 → 2SO 05-12 14:56
PROVIDERS: Emergency Medicine; Internal Medicine; Student in an Organized Health Care Education/Training Program; Surgery
PROC: 04V03DZ Restriction of Abdominal Aorta with Intraluminal Device, Percutaneous Approach (ICD-10-PCS; principal; 2017-05-08)
PROC: 047A3DZ Dilation of Left Renal Artery with Intraluminal Device, Percutaneous Approach (ICD-10-PCS; 2017-05-11 07:45)
PROC: B31P1ZZ Fluoroscopy of Thoraco-Abdominal Aorta using Low Osmolar Contrast (ICD-10-PCS; 2017-05-11 07:45)
DX: I71.6 Thoracoabdominal aortic aneurysm, without rupture (principal); D63.1 Anemia in chronic kidney disease; I12.9 Hypertensive chronic kidney disease with stage 1 through stage 4 chronic kidney disease, or unspecified chronic kidney disease; E78.5 Hyperlipidemia, unspecified; G47.33 Obstructive sleep apnea (adult) (pediatric); N18.9 Chronic kidney disease, unspecified; Z88.5 Allergy status to narcotic agent; Z98.890 Other specified postprocedural states; Z79.82 Long term (current) use of aspirin; Z79.899 Other long term (current) drug therapy
CPT/HCPCS: 33886; 36245; 36415; 37236; 71010; 71275; 74175; 74176; 75959; 80048; 80053; 82150; 83690; 83735; 84132; 84484; 85014; 85018; 85025; 85027; 85610; 85730; 86850; 86900; 86901; 87641; 93005; 94640; 96374; 96375; 97161-GP; 99285; 99291; A9270-GY; C1725; C1760; C1769; C1874; C1894; G8978-CJ-GP; G8979-CH-GP; J0690; J1170; J2405; J2720; J3010; Q9967